=== PATIENT | male | born 2000 | race Two or more races ===

== ENCOUNTER 2025-06-04 03:36 | Emergency (ER) | payer OTHER ==
[~2025-06-04] VITALS: Ht 172.7 cm; Wt 77.1 kg
[2025-06-04 04:03] VITALS: BP 137/87; TEMP 97.7; O2SAT 98
[2025-06-04] MEDS ORDERED: METRONIDAZOLE 500 MG TABLET ONE (04:20)
[2025-06-04] MEDS ORDERED: CEFTRIAXONE 500 MG VIAL ONE (04:20)
[2025-06-04] MEDS ORDERED: AZITHROMYCIN 250 MG TABLET ONE ×2 (04:20→04:21)
[2025-06-04] MEDS ORDERED: LIDOCAINE /MPF 1% VIAL 5 ML VIAL ONE (04:22)
[2025-06-04] MEDS: AZITHROMYCIN 250 MG TABLET PO ONE (04:36)
[2025-06-04] MEDS: METRONIDAZOLE 500 MG TABLET PO ONE (04:36)
[2025-06-04] MEDS: CEFTRIAXONE 500 MG VIAL IM ONE (04:36)
[2025-06-04 04:59] LABS: APPEARANCE,URINE CLEAR (CLEAR); BLOOD, URINE NEGATIVE Ery/uL (NEGATIVE); LEUKOCYTE ESTERASE ,URINE NEGATIVE (NEGATIVE); NITRITE, URINE NEGATIVE (NEGATIVE); UGLUCOSE NEGATIVE (NEGATIVE)
[2025-06-04 15:02] LABS: HIV-1/2 ANTIBODY NON REACTIVE (NONREACTIVE)
[2025-06-07 17:11] LABS: CHLAMYDIA TRACHOMATIS NAA Negative (Negative); NEISSERIA GONORRHOEAE NAA Negative (Negative)
== END 2025-06-04 05:15 | disposition home or self-care (01) ==
LOC: ER 03:54
DX: Z20.2 Contact with and (suspected) exposure to infections with a predominantly sexual mode of transmission (principal)
CPT/HCPCS: 99283; 96372; 81003; 36415; 87806; 87491; 87591; J0696; J3490